=== PATIENT | female | born 1960 | race African-American/Black ===

== ENCOUNTER 2017-08-20 07:00 | Outpatient (CLI) | payer OTHER ==
--- NOTE | 2017-08-20 10:57 | RAD ---
TWO VIEWS OF THE LEFT HIP: DATE: 08/20/17. HISTORY: Low back pain and left hip pain. FINDINGS: There is no significant joint space narrowing or osteophytosis formation involving the left hip. No displaced fracture or dislocation. IMPRESSION: No acute osseous abnormality. POS: [facility]
--- NOTE | 2017-08-20 11:01 | RAD ---
SIX VIEWS OF THE LUMBAR SPINE: 08/20/2017 HISTORY: Low back pain. COMPARISON: None. FINDINGS: Images include neutral, flexion, and extension lateral views, as well as bilateral oblique views and a frontal view. Frontal exam demonstrates clips in the right upper quadrant, suggesting a prior cholecystectomy. Lum bar type vertebral bodies are present with intact pedicles on frontal imaging. Oblique imaging demon strates no evidence for pars defect on either side at any level. At L4-L5 and at L5-S1, there is disk space narrowing and degenerative endplate change with anterior o steophyte formation. there is facet hypertrophy bilaterally at L4-L5 and at L5-S1. There is no anterolisthesis or retrolisthesis seen on the standing neutral lateral view, the flexion standing lateral view, or the extension standing lateral view. IMPRESSION: Degenerative disk disease and facet hypertrophic change at L4-L5 and at L5-S1. No acute fracture. N o evidence for anterolisthesis or retrolisthesis is seen. POS: [facility]
--- NOTE | 2017-08-20 11:52 | MRI ---
EXAM: MRI LUMBAR SPINE WITHOUT CONTRAST: HISTORY: Low back pain with radiation to the hip x 2 months. COMPARISON: None. TECHNIQUE: Lumbar spine MRI is performed without contrast. Multisequential, multiplanar imaging is performed. FINDINGS: There is appropriate T1 marrow signal intensity of the lumbar vertebrae. Lumbar spine vertebral body height is maintained. No significant STIAR hyperintensity to suggest edema or ligamentous injury. Symmetric signal intensity of the psoas muscles. Appropriate signal intensity of the visualized leonardo d organs. T2 hyperintensity emanating from the left kidney, compatible with a large left cortical cy st, incompletely evaluated. Conus medullaris appears to terminate at the T12-L1 disk space level. There is disk desiccation with mild loss of disk space height at T10-T11. T12-L1: Adequate disk hydration. No significant central canal stenosis or foraminal narrowing. L1-L2: Adequate disk hydration. No significant central canal stenosis or foraminal narrowing. L2-L3: Minimal disk desiccation without significant loss of disk space height. Minimal draining of the left subarticular zone. Disk material abuts but does not obscure the traversing left L3 nerve ro ot. Overall, there is no significant central canal stenosis. Neural foramina are patent. L3-L4: Desiccation with mild loss of disk space height. Generalized disk bulge results in mild cent ral canal stenosis. Mild posterior hypertrophy. The right neural foramen is patent. Mild to modera te left foraminal narrowing. L4-L5: Desiccation with loss of disk space height. Generalized disk bulge and posterior element hyp ertrophy does cause some mild narrowing of the subarticular zone bilaterally. There is some mass eff ect without obscuration of bilateral traversing L5 nerve roots. No significant stenosis of the theca l sac. Moderate bilateral foraminal narrowing. L5-S1: Desiccation with mild loss of disk space height. There is a generalized disk bulge with a ce ntral disk protrusion. Minimal narrowing of the left subarticular zone predominantly due to disk mat erial. There is some mass effect without obscuration of the traversing left S1 nerve root. There is mild central canal stenosis. Moderate to severe bilateral foraminal narrowing. IMPRESSION: Degenerative disease at L4-L5 and L5-S1. POS: [facility]
== END 2017-08-20 07:01 | disposition home or self-care (01) ==
LOC: MRI 07:00 → TBSIIMAG 07:01
PROVIDERS: ATTEND Internal Medicine
DX: M51.17 Intervertebral disc disorders with radiculopathy, lumbosacral region (principal); M54.5 Low back pain; M25.551 Pain in right hip; Z80.9 Family history of malignant neoplasm, unspecified; R53.83 Other fatigue; Z79.899 Other long term (current) drug therapy; Z00.01 Encounter for general adult medical examination with abnormal findings; E66.9 Obesity, unspecified; M19.90 Unspecified osteoarthritis, unspecified site; I10 Essential (primary) hypertension; R94.5 Abnormal results of liver function studies; R71.8 Other abnormality of red blood cells
CPT/HCPCS: 36415; 72100; 72148; 80053; 80061; 81003; 82043; 82306; 82728; 83021; 83036; 83540; 83550; 84165; 84443; 84550; 85027; 85652; 86140

== ENCOUNTER 2019-12-04 09:09 | Emergency (ER) | payer OTHER, SELFPAY ==
[2019-12-04 09:52] LABS: #Basophils 0.1 thou/uL (0.0-0.2); #Lymphocytes 1.4 thou/uL (1.20-3.40); #Monocytes 0.7 thou/uL (0.11-0.59); #Neutrophils 6.4 thou/uL (1.40-6.50); %Basophils 0.6 % (0.0-1.0); %Eosinophils 0.6 % (0.0-10.0); %Lymphocytes 16.5 % (21.0-51.0); %Monocytes 7.7 % (0.0-10.0); %Neutrophils 74.7 % (42.0-75.0); Hemoglobin 15.6 g/dL (12.0-16.0); Mean Corpuscular HGB CONC 30.6 g/dL (32.0-36.0); Mean Corpuscular Volume 88.2 fL (78.0-98.0); Platelet Count 225 thou/uL (130-400); Red Blood Cell (RBC) Count 5.79 mill/uL (4.20-5.40); White Blood Cell (WBC) Count 8.6 thou/uL (4.8-10.8)
[2019-12-04 10:01] LABS: Bacteria/HPF None Seen HPF (None Seen); Bilirubin Negative (Negative); Blood, Urine 1+ (Negative); Clarity Turbid (Clear); Glucose, Urine (Dipstick) Normal (Negative); Leukocyte Negative Leu/uL (Negative); Mucous/LPF 1+ LPF (<2+); Nitrite Negative (Negative); Protein, Urine (Dipstick) 50 mg/dL (Neg-Trace); RBC/HPF 0-3 HPF (0-3)
[2019-12-04 10:15] LABS: ALT (SGPT) 14 U/L (8-55); AST (SGOT) 16 U/L (5-34); Albumin 4.1 g/dL (3.5-5.0); Alkaline Phosphatase 114 U/L (40-110); Anion Gap 12 mmol/L (10-20); BUN (Urea Nitrogen) 17 mg/dL (9.8-20.1); Bilirubin, Total 0.7 mg/dL (0.2-1.2); Calc. Creatinine Clearance 0 mL/min (70-130); Calcium 9.2 mg/dL (7.8-10.44); Carbon Dioxide 27 mmol/L (22-29); Chloride 103 mmol/L (98-107); Estimated GFR-MDRD 54; Globulin 4.1 g/dL (2.4-3.5); Glucose 118 mg/dL (70-105); Protein, Total 8.2 g/dL (6.0-8.3); Sodium 138 mmol/L (136-145)
[2019-12-04] MEDS ORDERED: Ketorolac Tromethamine 60 MG/2 ML VIAL ONE (10:23)
== END 2019-12-04 13:23 | disposition home or self-care (01) ==
LOC: ERS 09:09
DX: A08.4 Viral intestinal infection, unspecified (principal); I10 Essential (primary) hypertension; Z87.891 Personal history of nicotine dependence; Z79.899 Other long term (current) drug therapy
CPT/HCPCS: 36415; 80053; 81003; 81015; 83690; 84484; 85025; 93005; 96372; J1885

== ENCOUNTER 2019-12-08 16:30 | Emergency (ER) | payer SELFPAY ==
[2019-12-08 17:26] LABS: #Basophils 0.1 thou/uL (0.0-0.2); #Eosinphils 0.1 thou/uL (0.0-0.7); #Lymphocytes 1.9 thou/uL (1.20-3.40); #Monocytes 0.5 thou/uL (0.11-0.59); #Neutrophils 4.2 thou/uL (1.40-6.50); %Basophils 1.4 % (0.0-1.0); %Eosinophils 1.2 % (0.0-10.0); %Lymphocytes 27.9 % (21.0-51.0); %Monocytes 7.7 % (0.0-10.0); %Neutrophils 61.8 % (42.0-75.0); Hemoglobin 15.6 g/dL (12.0-16.0); Mean Corpuscular HGB CONC 31.7 g/dL (32.0-36.0); Mean Corpuscular Hemoglobin 28.1 pg (27.0-31.0); Mean Corpuscular Volume 88.6 fL (78.0-98.0); Mean Platelet Volume 6.9 fL (7.4-10.4); Platelet Count 210 thou/uL (130-400); Red Blood Cell (RBC) Count 5.55 mill/uL (4.20-5.40); White Blood Cell (WBC) Count 6.8 thou/uL (4.8-10.8)
[2019-12-08 17:35] LABS: Bilirubin Negative (Negative); Blood, Urine 1+ (Negative); Clarity Turbid (Clear); Glucose, Urine (Dipstick) Normal (Negative); Leukocyte Negative Leu/uL (Negative); Nitrite Negative (Negative); Protein, Urine (Dipstick) 50 mg/dL (Neg-Trace); RBC/HPF 0-3 HPF (0-3); WBC/HPF 0-3 HPF (0-3)
[2019-12-08 17:49] LABS: ALT (SGPT) 17 U/L (8-55); AST (SGOT) 19 U/L (5-34); Albumin 3.8 g/dL (3.5-5.0); Alkaline Phosphatase 108 U/L (40-110); Anion Gap 11 mmol/L (10-20); BUN (Urea Nitrogen) 12 mg/dL (9.8-20.1); Bilirubin, Total 0.7 mg/dL (0.2-1.2); Calc. Creatinine Clearance 0 mL/min (70-130); Calcium 9.5 mg/dL (7.8-10.44); Carbon Dioxide 28 mmol/L (22-29); Chloride 104 mmol/L (98-107); Estimated GFR-MDRD 63; Globulin 4.5 g/dL (2.4-3.5); Glucose 101 mg/dL (70-105); Lipase 11 U/L (8-78); Potassium 4.5 mmol/L (3.5-5.1); Protein, Total 8.3 g/dL (6.0-8.3); Sodium 138 mmol/L (136-145)
[2019-12-08 17:50] LABS: Bacteria/HPF 1+ HPF (None Seen); Mucous/LPF 2+ LPF (<2+)
== END 2019-12-08 17:50 | disposition home or self-care (01) ==
LOC: ERS 16:30
DX: B02.9 Zoster without complications (principal); I10 Essential (primary) hypertension; Z79.899 Other long term (current) drug therapy
CPT/HCPCS: 36415; 80053; 81003; 81015; 83690; 85025; 99283